=== PATIENT | female | born 1950 | race Caucasian/White ===

== ENCOUNTER → 2017-02-09 | Outpatient (CLI) | payer MEDICARE, OTHER | END | disposition home or self-care (01) | LOC: RADECHMAIN 13:29 | PROVIDERS: ATTEND Nurse Practitioner Adult Health | DX: Z53.9 Procedure and treatment not carried out, unspecified reason (principal) ==

== ENCOUNTER → 2017-08-13 | Outpatient (CLI) | payer MEDICARE, OTHER ==
--- NOTE | 2017-08-13 12:49 | CT ---
EXAMINATION TYPE: CT chest wo con DATE OF EXAM: 08/13/2017 COMPARISON: 02/09/2017 HISTORY: Solitary pulmonary nodule follow-up. CT DLP: 543 mGycm. Automated Exposure Control for Dose Reduction was Utilized. TECHNIQUE: CT scan of the thorax is performed without IV contrast. FINDINGS: LUNGS: Pleural thickening and subpleural nodularity appears stable. Area of consolidation within the anterior lingula is unchanged in appearance appears most likely inflammatory. Changes of COPD again noted. No consolidative pneumonia, pleural effusion, or pneumothorax. MEDIASTINUM: Lack of IV contrast is noted to limit evaluation for mediastinal and especially hilar ad enopathy. There are no definitive greater than 1 cm hilar or mediastinal lymph nodes. Trace amount pe ricardial fluid noted. OTHER: There is a 1 cm hyperdense lesion involving the upper pole the left kidney likely related to h emorrhagic cyst recommend ultrasound for confirmation. There is a 2 cm lesion involving the upper susie e the right kidney measuring 2 Hounsfield units compatible with a simple cyst. Small hiatal hernia no kelli. Hypertrophic and degenerative change of the spine noted. IMPRESSION: 1. Stable chronic nodularity recommend follow-up CT scan in 6 months to confirm stability. 2. Subsegmental consolidation lingular segment left upper lobe is stable likely postinflammatory. 3. Hyperdense lesion upper pole left kidney measuring approximate 1 cm most likely in the basis of he morrhagic cyst. Ultrasound recommended for confirmation. Area was not included on the previous CT sca n.
== END | disposition home or self-care (01) ==
LOC: RADCTMAIN 12:14
PROVIDERS: ATTEND Family Medicine
DX: R91.1 Solitary pulmonary nodule (principal); J98.4 Other disorders of lung
CPT/HCPCS: 71250

== ENCOUNTER → 2017-08-25 | Outpatient (CLI) | payer MEDICARE, OTHER ==
--- NOTE | 2017-08-25 20:18 | US ---
EXAMINATION TYPE: US kidneys/renal and bladder DATE OF EXAM: 08/25/2017 COMPARISON: CT Chest CLINICAL HISTORY: 67-year-old female N28.1 CYST OF KIDNEY. TECHNIQUE: Multiple sonographic images of the kidneys and bladder are obtained. FINDINGS: EXAM MEASUREMENTS: Right Kidney: 11.3 x 5.3 x 4.8 cm Left Kidney: 11.5 x 5.3 x 5.3 cm Right Kidney: There is an upper pole simple cyst measuring 1.8 cm. An exophytic hypoechoic lesion at the lower pole measures 1.4 cm and probably represents a cyst. Internal echoes could be artifactual o r could represent debris. There is a third cyst measuring 1 cm in the mid to lower pole. Left Kidney: Exophytic lower pole cyst measures 2.1 cm. There is also a tiny upper pole cortical cyst measuring 1 cm. This likely corresponds to the CT finding. No hydronephrosis on either side. Bladder: wnl Bilateral Jets seen: Yes IMPRESSION: 1. Multiple renal cysts measuring up to 1.8 cm on the right and 2.1 cm on the left. 2. One of the lesions in the mid to lower pole right kidney is indeterminate measuring 1.4 cm but mos t likely represents a cyst. Internal echoes could be artifactual or could represent debris. A six-mon th follow-up could be considered. 3. A 1 cm cyst in the upper pole left kidney likely corresponds to the question hemorrhagic cyst seen on CT. Again, this area can be reassessed in 6 months.
== END | disposition home or self-care (01) ==
LOC: RADUSWWP 15:56
PROVIDERS: ATTEND Family Medicine
DX: N28.1 Cyst of kidney, acquired (principal)
CPT/HCPCS: 76770

== ENCOUNTER → 2018-02-16 | Outpatient (CLI) | payer MEDICARE, OTHER ==
--- NOTE | 2018-02-16 12:47 | CT ---
EXAMINATION TYPE: CT chest wo con DATE OF EXAM: 02/16/2018 COMPARISON: CT chest August 13, 2017. Low dose lung screening CT February 09, 2017. HISTORY: Pulmonary nodule CT DLP: 295.2 mGycm. Automated Exposure Control for Dose Reduction was Utilized. TECHNIQUE: CT scan of the thorax is performed without IV contrast. FINDINGS: LUNGS: Linear scarring in the lingula is redemonstrated less nodular in appearance versus older studi es. Stable mild biapical pleural/parenchymal scarring is noted. Prominent left lower thin-walled cyst medially left lung base is redemonstrated axial image 44. Additional smaller blebs or thin-walled cy sts are noted bilaterally. No suspicious new nodule or mass. No pleural effusion or pneumothorax. MEDIASTINUM: Lack of IV contrast is noted to limit evaluation for mediastinal and especially hilar ad enopathy. There are no definitive greater than 1 cm hilar or mediastinal lymph nodes. No cardiomega ly or pericardial effusion is seen. OTHER: Demineralization is present. Mild multilevel anterior spurring in the spine is seen. Stable vogel bcentimeter hyperdense lesion posteriorly upper pole level left kidney is too small to further charac terize favor proteinaceous cyst axial image 58. IMPRESSION: Linear scarring in the lingula less nodular on current study. No new greater than 4 mm no dules are evident in either lung.
== END ==
LOC: RADCTMAIN 11:37
PROVIDERS: ATTEND Family Medicine
DX: J98.4 Other disorders of lung (principal); R91.8 Other nonspecific abnormal finding of lung field
CPT/HCPCS: 71250

== ENCOUNTER → 2018-02-16 | Outpatient (CLI) | payer MEDICARE, OTHER ==
--- NOTE | 2018-02-16 16:03 | US ---
EXAMINATION TYPE: US kidneys/renal and bladder DATE OF EXAM: 02/16/2018 COMPARISON: CLINICAL HISTORY: N28.1 CYST ON KIDNEY. Hx of renal cysts, no surgeries EXAM MEASUREMENTS: Right Kidney: 10.3 x 4.2 x 4.6 cm Left Kidney: 10.2 x 4.2 x 4.7 cm Right Kidney: Multiple cystic appearing lesions seen, largest measured. 1- upper = 1.9 x 1.7 x 1.5 cm . 2- lower pole pedunculated = 1.5 x 1.1 x1.4 cm Left Kidney: Multiple cystic appearing lesions seen. 1- lower= 2.0 x 1.8 x 1.9 cm. 2- upper = 1.0 x 0.9 x 1.0 cm Bladder: distended, wnl as visualized Bilateral Jets seen IMPRESSION: 1. Bilateral renal cysts. These are somewhat limited due to patient body habitus and cannot be classi fied as simple cyst. Monitoring with ultrasound is recommended.
== END | disposition home or self-care (01) ==
LOC: RADUSWWP 11:03
PROVIDERS: ATTEND Urology
DX: N28.1 Cyst of kidney, acquired (principal)
CPT/HCPCS: 76770

== ENCOUNTER → 2019-03-09 | Outpatient (CLI) | payer MEDICARE, OTHER ==
--- NOTE | 2019-03-09 13:29 | US ---
EXAMINATION TYPE: US kidneys/renal and bladder DATE OF EXAM: 03/09/2019 COMPARISON: US 2018 CLINICAL HISTORY: N28.1 Multiple Renal [id number] Pulmonary nodule. Multiple renal cysts EXAM MEASUREMENTS: Right Kidney: 10.4 x 4.7 x 4.2 cm Left Kidney: 10.4 x 4.8 x 4.7 cm Right Kidney: 1.6 x 1.5 x 1.5cm exophytic cystic area inferior pole, 0.3cm echogenic focus inferior p ole Left Kidney: 2.3 x 2.0 x 2.0cm exophytic cystic area inferior pole, 1.6 x 1.6cm cystic area medial mi d pole Bladder: wnl Bilateral Jets seen: yes There is no evidence for hydronephrosis at this point in time bilaterally. Possible nonobstructing ti ny 3 mm calculus lower pole right kidney. Bilateral renal lesions as noted above not completely anech oic on images saved but not changed in size suggesting benign etiology. The urinary bladder is anech oic. Bilateral ureteral jets are seen. IMPRESSION: Overall stable findings. No new or enlarging concerning lesions or hydronephrosis seen bi laterally.
--- NOTE | 2019-03-09 14:13 | CT ---
EXAMINATION TYPE: CT chest wo con DATE OF EXAM: 03/09/2019 COMPARISON: 02/16/2018 HISTORY: Pulmonary nodule CT DLP: 500 mGycm, Automated exposure control for dose reduction was used. CONTRAST: Performed injected with 0 mL of Isovue 300. TECHNIQUE: Axial images were obtained at 5 mm thick sections. Reconstructed images are reviewed on [employer] computer in the coronal plane. FINDINGS: There is a 0.7 cm hypodensity within the mid left lobe thyroid. Thyroid is otherwise unrema rkable. No suspicious lung nodules or focal infiltrates are present. There is a stable appearance of some inf iltrate or scarring within the anterior lingula. Bulla within the inferior medial left lung base is s maller than comparison. No enlarged mediastinal or hilar adenopathy is evident. The ascending aorta diameter at the level o f the main pulmonary artery is 2.9 cm. The main pulmonary artery diameter at the bifurcation is 1.[address] sections are obtained through the upper abdomen. Abdomen is essentially unremarkable. IMPRESSIONS: 1. Unremarkable CT chest. 2. Stable infiltrate or scarring at the lingula.
== END | disposition home or self-care (01) ==
LOC: RADUSWWP 12:12
PROVIDERS: ATTEND Family Medicine
DX: N28.1 Cyst of kidney, acquired (principal); R91.1 Solitary pulmonary nodule
CPT/HCPCS: 71250; 76770

== ENCOUNTER → 2019-04-11 | Outpatient (CLI) | payer MEDICARE, OTHER ==
--- NOTE | 2019-04-14 10:42 | MM ---
Reason for exam: screening (asymptomatic). Last mammogram was performed 2 years and 2 months ago. History: Patient is postmenopausal. Physical Findings: A clinical breast exam by your physician is recommended on an annual basis and results should be correlated with mammographic findings. MG 3D Screening Mammo W/Cad Bilateral CC and MLO view(s) were taken. Prior study comparison: February 09, 2017, bilateral MG 3d screening mammo w/cad. The breast tissue is heterogeneously dense. This may lower the sensitivity of mammography. There are benign appearing round calcifications in the left breast. There is no discrete abnormality. ASSESSMENT: Benign, BI-RAD 2 RECOMMENDATION: Routine screening mammogram of both breasts in 1 year.
== END | disposition home or self-care (01) ==
LOC: RADMAMWWP 14:20
PROVIDERS: ATTEND Family Medicine
DX: Z12.31 Encounter for screening mammogram for malignant neoplasm of breast (principal)
CPT/HCPCS: 77063; 77067

== ENCOUNTER → 2020-03-07 | Outpatient (CLI) | payer MEDICARE, OTHER ==
--- NOTE | 2020-03-07 15:01 | US ---
EXAMINATION TYPE: US kidneys/renal and bladder DATE OF EXAM: 03/07/2020 COMPARISON: NONE CLINICAL HISTORY: R91.1 solitary lung nodule, N28.1 renal cysts. EXAM MEASUREMENTS: Right Kidney: 10.8 x 3.7 x 4.4 cm Left Kidney: 9.1 x 4.3 x 3.8 cm Right Kidney: Hypoechoic area lower pole 1.8 cm cystic area upper pole 1.3 cm. Left Kidney: Cystic area lower pole 2.1 x 2.2 x 2.3 cm Bladder: wnl Bilateral Jets seen: Yes There is no evidence for hydronephrosis at this point in time. No nephrolithiasis is seen. No patricia s are identified. The urinary bladder is anechoic. IMPRESSION: Renal cystic changes noted.
--- NOTE | 2020-03-07 15:10 | CT ---
EXAMINATION TYPE: CT chest wo con DATE OF EXAM: 03/07/2020 COMPARISON: Chest CT March 09, 2019 and older studies . HISTORY: Follow up for solitary lung nodule. CT DLP: 335.3 mGycm. Automated Exposure Control for Dose Reduction was Utilized. TECHNIQUE: CT scan of the thorax is performed without IV contrast. FINDINGS: LUNGS: Occasional scattered tiny blebs in the lower lungs. No suspicious new or enlarging greater th an 4 mm nodules or masses. No pleural effusion or pneumothorax. Mild to moderate left basilar linear scarring and/or atelectasis redemonstrated. MEDIASTINUM: Lack of IV contrast is noted to limit evaluation for mediastinal and especially hilar ad enopathy. There are no definitive new greater than 1 cm hilar or mediastinal lymph nodes. No cardio megaly or pericardial effusion is seen. OTHER: Mild to moderate multilevel spurring in the spine. IMPRESSION: Chronic changes without acute pulmonary process. No new or enlarging greater than 4 rocky meter pulmonary nodules.
== END | disposition home or self-care (01) ==
LOC: RADUSWWP 14:20
PROVIDERS: ATTEND Family Medicine
DX: N28.1 Cyst of kidney, acquired (principal); R91.1 Solitary pulmonary nodule
CPT/HCPCS: 71250; 76770

== ENCOUNTER 2020-11-26 16:29 | Emergency (ER) | payer MEDICARE, OTHER ==
[2020-11-26 16:38] VITALS: TEMP 98.2
--- NOTE | 2020-11-26 16:51 | ED ---
Chest Pain HPI - General Chief Complaint: Chest Pain Stated Complaint: Chest Pressure Time Seen by Provider: 11/26/20 16:47 Source: patient Mode of arrival: ambulatory Limitations: no limitations - History of Present Illness Initial Comments: Racheal is a 70-year-old female who presents to the emergency department today for evaluation of chest pressure. Patient reports she began experiencing pressure in her chest last month, she states that the first time she experienced it was during a doctor's appointment. She states that it has occurred intermitt ently since that time. Does not seem to be exacerbated by activity or relieved by rest. She cannot identify any exacerbating or relieving factors. She describes it as a pressure in her chest. Usually happens intermittently but has been relatively persistent for the past 3 days. No associated shortness of breath diaphoresis or lightheadedness. She does state that she hasn't been sleeping well this week. She states that her son is doing on Thursday across the states that she came to the ER today to make sure she is healthy enough to travel. Patient has no history of hypertension, she was once diagnosed with hyperlipidemia and was on statins for a short period of time but states that her repeat blood work was good and her prescription for statin was not renewed. She is currently on no medications. She is a smoker. She has no family history of heart disease. - Related Data Home Medications Medication Instructions Recorded Confirmed [place]-3 Fatty Acids/Fish Oil [Fish 2,000 mg PO DAILY 09/15/14 09/15/14 Oil 1,000 mg Softgel] Allergies Allergy/AdvReac Type Severity Reaction Status Date / Time Sulfa (Sulfonamide AdvReac RINGING IN Verified 11/26/20 16:38 Antibiotics) YOUR EARS Review of Systems ROS Statement: Those systems with pertinent positive or pertinent negative responses have been documented in the HPI. ROS Other: All systems not noted in ROS Statement are negative. EKG Findings - EKG Comments: EKG Findings:: EKG was obtained due to complaint of chest pain, EKG was obtained at 1645 rate is 77 rhythm is sinus there is a normal axis, there are normal intervals, LA 132, QRS 34, QTC is 436. There are no acute ST elevations, there are lateral depressions no evidence of acute ischemia or infarction. Past Medical History Past Medical History: No Reported History History of Any Multi-Drug Resistant Organisms: None Reported Past Surgical History: Appendectomy Additional Past Surgical History / Comment(s): ECTOPIC Past Anesthesia/Blood Transfusion Reactions: Motion Sickness Past Alcohol Use History: Occasional Past Drug Use History: None Reported General Exam - General Exam Comments Initial Comments: Physical Exam GENERAL: Patient is well-developed and well-nourished. Patient is nontoxic and well- hydrated and is in no distress. HENT: Normocephalic, Atraumatic. EYES: PERRL, EOMI PULMONARY: Unlabored respirations. No audible rales rhonchi or wheezing was noted. CARDIOVASCULAR: There is a regular rate and rhythm without any murmurs gallops or rubs. ABDOMEN: Soft and nontender with normal bowel sounds. SKIN: Skin is clear with no lesions or rashes and otherwise unremarkable. : Deferred NEUROLOGIC: Patient is alert and oriented x3. Moving all extremities spontaneously MUSCULOSKELETAL: Normal extremities with adequate strength and full range of motion. No lower extremity swelling or edema. No calf tenderness. PSYCHIATRIC: Normal psychiatric evaluation. Limitations: no limitations Course Vital Signs 11/26/20 11/26/20 16:36 16:51 Temperature 98.2 F Pulse Rate 86 Pulse Rate [ 78 Scientific Diver ] Respiratory 18 Rate Blood Pressure 156/79 O2 Sat by Pulse 98 Oximetry Disposition Clinical Impression: Atypical chest pain Disposition: HOME SELF-CARE Condition: Stable Instructions (If sedation given, give patient instructions): Chest Pain (ED) Is patient prescribed a controlled substance at d/c from ED?: No Referrals: Georges Bueno MD [Primary Care Provider] - 1-2 days
[2020-11-26 17:12] LABS: Basophils % (A) 0 %; Eosinophils # (A) 0.1 k/uL (0-0.7); Eosinophils % (A) 1 %; HCT 49.6 % (34.0-46.0); HGB 16.8 gm/dL (11.4-16.0); Lymphocytes # (A) 1.8 k/uL (1.0-4.8); Lymphocytes % (A) 20 %; MCH 33.8 pg (25.0-35.0); MCHC 33.9 g/dL (31.0-37.0); MCV 99.6 fL (80.0-100.0); Mean Platelet Volume 8.7; Monocytes # (A) 0.4 k/uL (0-1.0); Monocytes % (A) 5 %; Neutrophils # (A) 6.4 k/uL (1.3-7.7); Neutrophils % (A) 72 %; Platelet Count 235 k/uL (150-450); RBC 4.97 m/uL (3.80-5.40); RDW 13.4 % (11.5-15.5); WBC 8.9 k/uL (3.8-10.6)
[2020-11-26 17:27] LABS: INR 0.9 (<1.2); Partial Thromboplastin Time 23.1 sec (22.0-30.0); Prothrombin Time 10.1 sec (9.0-12.0)
[2020-11-26 17:35] LABS: Potassium 4.1 mmol/L (3.5-5.1)
[2020-11-26 17:36] LABS: ALT 15 U/L (4-34); AST 23 U/L (14-36); African American GFR (CKD) >90 (>60 ml/min/1.73 sqM); Albumin 4.2 g/dL (3.5-5.0); Alkaline Phosphatase 124 U/L (38-126); Anion Gap 7 mmol/L; Blood Urea Nitrogen 9 mg/dL (7-17); Carbon Dioxide 21 mmol/L (22-30); Chloride 109 mmol/L (98-107); Glucose 117 mg/dL (74-99); Lipase 165 U/L (23-300); Magnesium 2.1 mg/dL (1.6-2.3); Non-African American GFR(CKD) >90 (>60 ml/min/1.73 sqM); Sodium 137 mmol/L (137-145); Total Bilirubin 0.7 mg/dL (0.2-1.3); Total Protein 6.9 g/dL (6.3-8.2)
--- NOTE | 2020-11-26 18:55 | XR ---
EXAM: XR Chest, 2 Views CLINICAL HISTORY: ITS.REASON XR Reason: Chest Pain TECHNIQUE: Frontal and lateral views of the chest. COMPARISON: None FINDINGS: Hardware: None. Lungs/pleura: Mild bibasilar atelectasis. No focal consolidation. No pleural effusion or pneumothorax. Heart/mediastinum: Normal. No cardiomegaly. Soft tissues: Unremarkable. Bones: No acute fracture. Upper abdomen: Normal. IMPRESSION: Mild bibasilar atelectasis. No acute disease identified.
[2020-11-26 19:32] VITALS: BP 153/65; PULSE 64; RESP 16
== END 2020-11-26 19:32 | disposition home or self-care (01) ==
LOC: EC 16:29
DX: R07.89 Other chest pain (principal)
CPT/HCPCS: 36415; 71046; 80053; 83690; 83735; 83880; 84484; 85025; 85379; 85610; 85730; 93005; 99285

== ENCOUNTER 2021-07-06 10:05 | Emergency (ER) | payer MEDICARE, OTHER ==
[2021-07-06 10:15] VITALS: RESP 18; TEMP 98.1
[2021-07-06] MEDS ORDERED: SODIUM CHLORIDE 0.9% 500 ML 500 ML IV STA (10:50)
[2021-07-06] MEDS ORDERED: ONDANSETRON 4 MG/2 ML VIAL IVP STA (10:51)
[2021-07-06] MEDS ORDERED: KETOROLAC 15 MG/ML 1 ML VIAL IVP STA (10:52)
--- NOTE | 2021-07-06 10:57 | ED ---
General Adult HPI - General Source: patient, family, RN notes reviewed, old records reviewed Mode of arrival: ambulatory Limitations: no limitations - History of Present Illness -: week(s) (2) Location: face (frontal sinus) Severity scale (1-10): 7 Quality: aching, dull, constant Consistency: constant Associated Symptoms: malaise, nausea/vomiting Treatments Prior to Arrival: other (augmentin) <Kishor Armando - Last Filed: 07/06/21 17:00> <Suzanne Owusu - Last Filed: 07/07/21 09:43> - General Chief complaint: Weakness Stated complaint: NVD Time Seen by Provider: 07/06/21 10:47 - History of Present Illness Initial comments: 71-year-old female presents to the emergency room with frontal sinus pain, malaise, nausea and vomiting. Patient was treated for urinary tract infection 2 weeks ago. States at that time she did not have any urinary tract symptoms. States she developed headache and sinus congestion/pressure a week ago and called her primary care doctor who prescribed her Augmentin on Thursday. Patient complains of nausea and decreased appetite and generalized malaise worsening with Augmentin. She denies any fevers. She states that decreased appetite and intermittent abdominal pain has been present for over a year and has seen Dr. Ayala in the past. She has been taking probiotics as recommended. She states she had a colonoscopy in April and was told she had a hiatal hernia at that time. She denies any chest pain or shortness of breath. (Kishor Armando) - Related Data Home Medications Medication Instructions Recorded Confirmed Omeprazole [PriLOSEC] 40 mg PO DAILY 05/03/21 05/08/21 Prolia(Dose Unknown) 1 injection IJ DIRECTED 05/03/21 05/08/21 Allergies Allergy/AdvReac Type Severity Reaction Status Date / Time Sulfa (Sulfonamide AdvReac RINGING IN Verified 07/06/21 10:15 Antibiotics) YOUR EARS Review of Systems ROS Other: All systems not noted in ROS Statement are negative. <Kishor Armando - Last Filed: 07/06/21 17:00> ROS Other: All systems not noted in ROS Statement are negative. <Suzanne Owusu - Last Filed: 07/07/21 09:43> ROS Statement: Those systems with pertinent positive or pertinent negative responses have been documented in the HPI. Past Medical History Past Medical History: No Reported History History of Any Multi-Drug Resistant Organisms: None Reported Past Surgical History: Appendectomy Additional Past Surgical History / Comment(s): ECTOPIC Past Anesthesia/Blood Transfusion Reactions: Motion Sickness Smoking Status: Current every day smoker Past Alcohol Use History: Occasional Past Drug Use History: None Reported <Kishor Armando - Last Filed: 07/06/21 17:00> General Exam Limitations: no limitations General appearance: alert, in no apparent distress Head exam: Present: atraumatic, normocephalic, normal inspection, other (Pain with palpation of frontal sinus) Eye exam: Present: normal appearance. Absent: scleral icterus, conjunctival injection, periorbital swelling, periorbital tenderness ENT exam: Present: normal exam, normal oropharynx, mucous membranes moist Neck exam: Present: normal inspection, full ROM. Absent: tenderness, meningismus, lymphadenopathy, thyromegaly Respiratory exam: Present: normal lung sounds bilaterally. Absent: respiratory distress, wheezes, rales, rhonchi, stridor, chest wall tenderness, accessory muscle use, decreased breath sounds Cardiovascular Exam: Present: tachycardia, normal heart sounds. Absent: JVD GI/Abdominal exam: Present: soft. Absent: distended, tenderness, guarding Extremities exam: Present: normal capillary refill. Absent: tenderness, pedal edema Back exam: Absent: tenderness, CVA tenderness (R), CVA tenderness (L) Neurological exam: Present: alert, oriented X3, normal gait Psychiatric exam: Present: normal affect, normal mood Skin exam: Present: warm, dry, normal color. Absent: rash, cyanosis, diaphoretic <Kishor Armando - Last Filed: 07/06/21 17:00> Course Vital Signs 07/06/21 07/06/21 10:10 13:38 Temperature 98.1 F Pulse Rate 106 H 84 Respiratory 18 18 Rate Blood Pressure 144/83 117/70 O2 Sat by Pulse 94 L 99 Oximetry EKG Findings - EKG Results: EKG: sinus rhythm (Ventricular rate of 95, UT of 0.135, QRS 0.78, QTC 0.384) <Kishor Armando - Last Filed: 07/06/21 17:00> Medical Decision Making - Lab Data Result diagrams: 07/06/21 11:00 07/06/21 11:00 <Kishor Armando - Last Filed: 07/06/21 17:00> - Lab Data Result diagrams: 07/06/21 11:00 07/06/21 11:00 <Suzanne Owusu - Last Filed: 07/07/21 09:43> - Medical Decision Making 71-year-old female presents with headache, frontal sinus pain, malaise, nausea and vomiting since taking Augmentin for sinusitis. She finished a course of antibiotics for urinary tract infection 2 weeks ago. She denies any fevers, no cough, shortness of breath or chest pain. Patient does have a white blood cell count 18.6. Urinalysis shows no nitrates or bacteria. Influenza, RSV and Covid swabs are negative. CT brain shows no acute intracranial process. Mild scattered paranasal sinus disease with no abnormal fluid collections. No midline shift. Abdomen is soft and nontender. Lungs are clear to auscultation. Vital signs are stable oxygen saturation 99% on room air. She is afebrile. Patient was directed to continue her Augmentin for sinusitis and follow up with her primary care doctor on Thursday for reevaluation of her white blood cell count. Return to the emergency room with any new or concerning symptoms including difficulty breathing, cough, abdominal pain, fevers, or persistent nausea and vomiting. Case discussed with Dr. Owusu (Kishor Armando) I was available for consultation in the emergency department. The history and physical exam were done by the midlevel provider. I was consulted for this patients care. I reviewed the case with the midlevel provider and based on their presentation of the patient, I agree with the assessment, medical decision making and plan of care as documented. Chart was dictated using [employer] dictation software. Attempts were made to correct any dictation errors however some typographical errors may persist. Patient was seen during a national state of emergency due to the Covid-19 pandemic. (Suzanne Owusu) - Lab Data Lab Results 07/06/21 07/06/21 07/06/21 Range/Units 11:00 11:00 11:00 WBC 18.6 H (3.8-10.6) k/uL RBC 4.82 (3.80-5.40) m/uL Hgb 15.6 (11.4-16.0) gm/dL Hct 47.3 H (34.0-46.0) % MCV 98.2 (80.0-100.0) fL MCH 32.4 (25.0-35.0) pg MCHC 33.0 (31.0-37.0) g/dL RDW 14.0 (11.5-15.5) % Plt Count 310 (150-450) k/uL MPV 9.0 Neutrophils % 89 % Lymphocytes % 4 % Monocytes % 6 % Eosinophils % 0 % Basophils % 0 % Neutrophils # 16.5 H (1.3-7.7) k/uL Lymphocytes # 0.8 L (1.0-4.8) k/uL Monocytes # 1.2 H (0-1.0) k/uL Eosinophils # 0.0 (0-0.7) k/uL Basophils # 0.0 (0-0.2) k/uL PT 10.8 (9.0-12.0) sec INR 1.0 (<1.2) APTT 23.0 (22.0-30.0) sec Sodium (137-145) mmol/L Potassium (3.5-5.1) mmol/L Chloride (98-107) mmol/L Carbon Dioxide (22-30) mmol/L Anion Gap mmol/L BUN (7-17) mg/dL Creatinine (0.52-1.04) mg/dL Est GFR (CKD-EPI)AfAm (>60 ml/min/1.73 sqM) Est GFR (CKD-EPI)NonAf (>60 ml/min/1.73 sqM) Glucose (74-99) mg/dL Plasma Lactic Acid Randy (0.7-2.0) mmol/L Calcium (8.4-10.2) mg/dL Magnesium (1.6-2.3) mg/dL Total Bilirubin (0.2-1.3) mg/dL AST (14-36) U/L ALT (4-34) U/L Alkaline Phosphatase (38-126) U/L Troponin I (0.000-0.034) ng/mL Total Protein (6.3-8.2) g/dL Albumin (3.5-5.0) g/dL Urine Color Yellow Urine Appearance Cloudy H (Clear) Urine pH 6.0 (5.0-8.0) Ur Specific [place] 1.025 (1.001-1.035) Urine Protein 1+ H (Negative) Urine Glucose (UA) Trace H (Negative) Urine Ketones 2+ H (Negative) Urine Blood Small H (Negative) Urine Nitrite Negative (Negative) Urine Bilirubin Negative (Negative) Urine Urobilinogen 2.0 (<2.0) mg/dL Ur Leukocyte Esterase Small H (Negative) Urine RBC 13 H (0-5) /hpf Urine WBC 3 (0-5) /hpf Ur Squamous Epith Cells 7 H (0-4) /hpf Urine Mucus Many H (None) /hpf Influenza Type A (PCR) (Not Detectd) Influenza Type B (PCR) (Not Detectd) RSV (PCR) (Not Detectd) SARS-CoV-2 (PCR) (Not Detectd) 07/06/21 07/06/21 07/06/21 Range/Units 11:00 11:00 11:00 WBC (3.8-10.6) k/uL RBC (3.80-5.40) m/uL Hgb (11.4-16.0) gm/dL Hct (34.0-46.0) % MCV (80.0-100.0) fL MCH (25.0-35.0) pg MCHC (31.0-37.0) g/dL RDW (11.5-15.5) % Plt Count (150-450) k/uL MPV Neutrophils % % Lymphocytes % % Monocytes % % Eosinophils % % Basophils % % Neutrophils # (1.3-7.7) k/uL Lymphocytes # (1.0-4.8) k/uL Monocytes # (0-1.0) k/uL Eosinophils # (0-0.7) k/uL Basophils # (0-0.2) k/uL PT (9.0-12.0) sec INR (<1.2) APTT (22.0-30.0) sec Sodium 135 L (137-145) mmol/L Potassium 3.2 L (3.5-5.1) mmol/L Chloride 104 (98-107) mmol/L Carbon Dioxide 19 L (22-30) mmol/L Anion Gap 12 mmol/L BUN 13 (7-17) mg/dL Creatinine 0.67 (0.52-1.04) mg/dL Est GFR (CKD-EPI)AfAm >90 (>60 ml/min/1.73 sqM) Est GFR (CKD-EPI)NonAf 89 (>60 ml/min/1.73 sqM) Glucose 161 H (74-99) mg/dL Plasma Lactic Acid Randy 1.5 (0.7-2.0) mmol/L Calcium 8.4 (8.4-10.2) mg/dL Magnesium 1.8 (1.6-2.3) mg/dL Total Bilirubin 1.1 (0.2-1.3) mg/dL AST 17 (14-36) U/L ALT 10 (4-34) U/L Alkaline Phosphatase 105 (38-126) U/L Troponin I <0.012 (0.000-0.034) ng/mL Total Protein 6.6 (6.3-8.2) g/dL Albumin 3.6 (3.5-5.0) g/dL Urine Color Urine Appearance (Clear) Urine pH (5.0-8.0) Ur Specific [place] (1.001-1.035) Urine Protein (Negative) Urine Glucose (UA) (Negative) Urine Ketones (Negative) Urine Blood (Negative) Urine Nitrite (Negative) Urine Bilirubin (Negative) Urine Urobilinogen (<2.0) mg/dL Ur Leukocyte Esterase (Negative) Urine RBC (0-5) /hpf Urine WBC (0-5) /hpf Ur Squamous Epith Cells (0-4) /hpf Urine Mucus (None) /hpf Influenza Type A (PCR) (Not Detectd) Influenza Type B (PCR) (Not Detectd) RSV (PCR) (Not Detectd) SARS-CoV-2 (PCR) (Not Detectd) 07/06/21 Range/Units 11:09 WBC (3.8-10.6) k/uL RBC (3.80-5.40) m/uL Hgb (11.4-16.0) gm/dL Hct (34.0-46.0) % MCV (80.0-100.0) fL MCH (25.0-35.0) pg MCHC (31.0-37.0) g/dL RDW (11.5-15.5) % Plt Count (150-450) k/uL MPV Neutrophils % % Lymphocytes % % Monocytes % % Eosinophils % % Basophils % % Neutrophils # (1.3-7.7) k/uL Lymphocytes # (1.0-4.8) k/uL Monocytes # (0-1.0) k/uL Eosinophils # (0-0.7) k/uL Basophils # (0-0.2) k/uL PT (9.0-12.0) sec INR (<1.2) APTT (22.0-30.0) sec Sodium (137-145) mmol/L Potassium (3.5-5.1) mmol/L Chloride (98-107) mmol/L Carbon Dioxide (22-30) mmol/L Anion Gap mmol/L BUN (7-17) mg/dL Creatinine (0.52-1.04) mg/dL Est GFR (CKD-EPI)AfAm (>60 ml/min/1.73 sqM) Est GFR (CKD-EPI)NonAf (>60 ml/min/1.73 sqM) Glucose (74-99) mg/dL Plasma Lactic Acid Randy (0.7-2.0) mmol/L Calcium (8.4-10.2) mg/dL Magnesium (1.6-2.3) mg/dL Total Bilirubin (0.2-1.3) mg/dL AST (14-36) U/L ALT (4-34) U/L Alkaline Phosphatase (38-126) U/L Troponin I (0.000-0.034) ng/mL Total Protein (6.3-8.2) g/dL Albumin (3.5-5.0) g/dL Urine Color Urine Appearance (Clear) Urine pH (5.0-8.0) Ur Specific [place] (1.001-1.035) Urine Protein (Negative) Urine Glucose (UA) (Negative) Urine Ketones (Negative) Urine Blood (Negative) Urine Nitrite (Negative) Urine Bilirubin (Negative) Urine Urobilinogen (<2.0) mg/dL Ur Leukocyte Esterase (Negative) Urine RBC (0-5) /hpf Urine WBC (0-5) /hpf Ur Squamous Epith Cells (0-4) /hpf Urine Mucus (None) /hpf Influenza Type A (PCR) Not Detected (Not Detectd) Influenza Type B (PCR) Not Detected (Not Detectd) RSV (PCR) Not Detected (Not Detectd) SARS-CoV-2 (PCR) Not Detected (Not Detectd) Disposition Is patient prescribed a controlled substance at d/c from ED?: No Time of Disposition: 14:04 <Kishor Armando - Last Filed: 07/06/21 17:00> <JoséstephanySuzanne Dorian - Last Filed: 07/07/21 09:43> Clinical Impression: Headache, Sinusitis Disposition: HOME SELF-CARE Condition: Good Instructions (If sedation given, give patient instructions): Sinusitis (ED), Acute Headache (ED) Additional Instructions: Continue the antibiotics as prescribed by your primary care doctor on Thursday. Follow-up with your primary care doctor on Thursday for reevaluation of your blood work. Increase your fluid intake. Return to the emergency room with any new or concerning symptoms including increased pain, fevers, abdominal pain or persistent nausea/vomiting. Referrals: Georges Bueno MD [Primary Care Provider] - 1-2 days
[2021-07-06 11:31] LABS: ALT 10 U/L (4-34); AST 17 U/L (14-36); African American GFR (CKD) >90 (>60 ml/min/1.73 sqM); Albumin 3.6 g/dL (3.5-5.0); Alkaline Phosphatase 105 U/L (38-126); Anion Gap 12 mmol/L; Blood Urea Nitrogen 13 mg/dL (7-17); Calcium 8.4 mg/dL (8.4-10.2); Carbon Dioxide 19 mmol/L (22-30); Chloride 104 mmol/L (98-107); Glucose 161 mg/dL (74-99); Magnesium 1.8 mg/dL (1.6-2.3); Non-African American GFR(CKD) 89 (>60 ml/min/1.73 sqM); Potassium 3.2 mmol/L (3.5-5.1); Sodium 135 mmol/L (137-145); Total Bilirubin 1.1 mg/dL (0.2-1.3); Total Protein 6.6 g/dL (6.3-8.2)
[2021-07-06 11:32] LABS: Appearance,Urine Cloudy (Clear); Bilirubin,Urine Negative (Negative); Blood,Urine Small (Negative); Color,Urine Yellow; Glucose,Urine (UA) Trace (Negative); Ketones,Urine 2+ (Negative); Leukocyte Esterase,Urine Small (Negative); Mucus,Urine Many /hpf; Nitrite,Urine Negative (Negative); Protein,Urine 1+ (Negative); RBC,Urine 13 /hpf (0-5); Specific Gravity,Urine 1.025 (1.001-1.035); Squamous Epithelial Cell,Urine 7 /hpf (0-4); WBC,Urine 3 /hpf (0-5)
[2021-07-06 11:36] LABS: Prothrombin Time 10.8 sec (9.0-12.0)
[2021-07-06 11:54] LABS: Influenza A Not Detected (Not Detectd); Influenza B Not Detected (Not Detectd)
[2021-07-06 12:19] LABS: Basophils % (A) 0 %; Eosinophils % (A) 0 %; HCT 47.3 % (34.0-46.0); HGB 15.6 gm/dL (11.4-16.0); Lymphocytes # (A) 0.8 k/uL (1.0-4.8); Lymphocytes % (A) 4 %; MCH 32.4 pg (25.0-35.0); MCV 98.2 fL (80.0-100.0); Monocytes # (A) 1.2 k/uL (0-1.0); Monocytes % (A) 6 %; Neutrophils # (A) 16.5 k/uL (1.3-7.7); Neutrophils % (A) 89 %; Platelet Count 310 k/uL (150-450); RBC 4.82 m/uL (3.80-5.40); WBC 18.6 k/uL (3.8-10.6)
[2021-07-06 13:39] VITALS: BP 117/70; PULSE 84
--- NOTE | 2021-07-06 13:41 | CT ---
EXAMINATION TYPE: CT brain wo con CT DLP: 1062.4 mGycm, Automated exposure control for dose reduction was used. DATE OF EXAM: 07/06/2021 1:31 PM COMPARISON: None. CLINICAL INDICATION:Female, 71 years old with history of headache , Nausea, vomiting, diarrhea, heada narayan TECHNIQUE: Brain: Multiple axial CT images of the brain were obtained without IV contrast. FINDINGS: Brain: Extra-axial spaces: No abnormal extra-axial fluid collections. Ventricular system: Within normal limits Cerebral parenchyma: No acute intraparenchymal hemorrhage or mass effect. The abraham-white junction is well differentiated. Cerebellum: Unremarkable. Mass effect: No evidence of midline shift. Intracranial vasculature: Atherosclerotic calcifications of the intracranial vessels. Soft tissues: Normal. Calvarium/osseous structures: No depressed skull fracture. Paranasal sinuses and mastoid air cells: Mild scattered paranasal sinus disease. Visualized orbits: Orbital contents are intact. IMPRESSION: No acute intracranial process.
[2021-07-06] MEDS ORDERED: ONDANSETRON 4 MG ODT STARTER PACK 2 TAB BTL PO STA (14:11)
== END 2021-07-06 14:15 | disposition home or self-care (01) ==
LOC: EC 10:05
DX: R51.9 Headache, unspecified (principal); J01.10 Acute frontal sinusitis, unspecified; F17.200 Nicotine dependence, unspecified, uncomplicated; Z88.2 Allergy status to sulfonamides; Z90.49 Acquired absence of other specified parts of digestive tract; Z20.822 Contact with and (suspected) exposure to COVID-19
CPT/HCPCS: 99284; 96374; 96375; 96361 ×2; 36415; 93005; 80053; 83605; 83735; 84484; 85025; 85610; 85730; 81001; 87636; 70450; J2405; J1885; S0119

== ENCOUNTER → 2021-07-10 | Outpatient (CLI) | payer MEDICARE, OTHER ==
[2021-07-10 13:41] LABS: African American GFR (CKD) >90 (>60 ml/min/1.73 sqM); Blood Urea Nitrogen 11 mg/dL (7-17); Non-African American GFR(CKD) >90 (>60 ml/min/1.73 sqM)
--- NOTE | 2021-07-10 14:43 | CT ---
EXAMINATION TYPE: CT abdomen pelvis w con DATE OF EXAM: 07/10/2021 COMPARISON: No previous CT scan is available for comparison HISTORY: LLQ pain CT DLP: 1295 mGycm Automated exposure control for dose reduction was used. TECHNIQUE: Helical acquisition of images was performed from the lung bases through the pelvis. CONTRAST: Performed without Oral Contrast and with IV Contrast, patient injected with 100 mL of Isovue 300. FINDINGS: LUNG BASES: Scattered bilateral small lung cysts. LIVER/GB: Tiny hyperenhancing foci are seen along the anterior aspect of the falciform ligament as we ll as in segment 6 laterally, measuring 6 mm and 9 mm respectively, possibly representing small heman giomas, further elective ultrasound confirmation. Unremarkable liver otherwise. Unremarkable gallblad jose rafael. PANCREAS: No significant abnormality is seen. SPLEEN: No significant abnormality is seen. ADRENALS: No significant abnormality is seen. KIDNEYS: 12 mm left upper pole slightly hyperdense renal cyst possibly representing a hemorrhagic cys t, for elective ultrasound confirmation. Other scattered bilateral renal hypodensities likely represe nting cysts without gross suspicious features. Unremarkable kidneys otherwise. FREE AIR: No free air is visualized. RETROPERITONEAL ADENOPATHY: Prominent subcentimeter retroperitoneal lymph nodes, nonspecific. REPRODUCTIVE ORGANS: No gross uterine or adnexal mass. URINARY BLADDER: No significant abnormality is seen. PELVIC ADENOPATHY: None visualized. OSSEOUS STRUCTURES: No significant abnormality is seen. BOWEL: Severe diffuse wall thickening and edema of the rectum and the entire colon suggestive of acu te colitis which could be inflammatory, infectious or pseudomembranous. Associated diverticulosis of the colon most evident involving the sigmoid colon. Unremarkable nondistended stomach and duodenum. N o evidence of bowel obstruction. Twisting of mesenteric vessels in the right side of the abdomen infe riorly which may suggest a form of uncomplicated internal hernia or abnormal bowel rotation. OTHER: Atherosclerotic calcifications. No sizable ascites. IMPRESSION: Findings are suggestive of severe diffuse acute colitis as described above which could be inflammator y, infectious or pseudomembranous. Recommend clinical correlation and further workup. Other incidenta l findings and recommendations as described above.
== END | disposition home or self-care (01) ==
LOC: RADCTMAIN 12:09
PROVIDERS: ATTEND Family Medicine
DX: R10.32 Left lower quadrant pain (principal)
CPT/HCPCS: 82565; 84520; 74177; 36415; Q9967

== ENCOUNTER → 2022-12-09 | Outpatient (CLI) | payer MEDICARE, OTHER ==
--- NOTE | 2022-12-09 14:48 | CT ---
EXAMINATION TYPE: CT chest wo con CT DLP: 395 mGycm, Automated exposure control for dose reduction was used. DATE OF EXAM: 12/09/2022 2:43 PM COMPARISON: 07/10/2021 CT. CLINICAL INDICATION:Female, 72 years old with history of R91.8 ABNORMAL FINDING OF LUNG FIELD; PHH, A BNORMAL FINDING OF LUNG FIELD TECHNIQUE: Multiple axial images were obtained through the chest. Sagittal and coronal reformats were created for review. Contrast used: mL of (None if empty) Oral contrast used: (None if empty) FINDINGS: LUNGS/ PLEURA: Scattered mild centrilobular emphysema changes. No new or enlarging pulmonary nodules visualized. No focal consolidation, pneumothorax or pleural effusion. Atelectasis/scarring in the kim gula. AIRWAY: Patent and unremarkable. HEART: Size within normal limits. MEDIASTINUM: No gross evidence of adenopathy. VASCULATURE: No aortic aneurysm. MUSCULOSKELETAL: Mild disc degeneration changes are present throughout the thoracolumbar spine. SOFT TISSUES/LYMPH NODES: Unremarkable. LOWER NECK: No significant findings. UPPER ABDOMEN: Right renal cortical cyst. Left hyperdense indeterminate renal cyst is stable from 202 0. IMPRESSION: 1. No evidence for new or enlarging pulmonary nodule. 2. Mild emphysema changes. 3. Stable left hyperdense renal cyst dating back to at least 03/07/2020 likely representing proteina ceous/hemorrhagic cyst.
== END | disposition home or self-care (01) ==
LOC: RADCTMAIN 14:19
PROVIDERS: ATTEND Family Medicine
DX: J43.2 Centrilobular emphysema (principal); R91.8 Other nonspecific abnormal finding of lung field; N28.1 Cyst of kidney, acquired
CPT/HCPCS: 71250

== ENCOUNTER → 2023-03-31 | Outpatient (CLI) | payer MEDICARE, OTHER ==
--- NOTE | 2023-04-02 22:26 | MM ---
Reason for Exam: Screening (asymptomatic). Last mammogram was performed 4 year(s) and 0 month(s) ago. Patient History: Menarche at age 10. First Full-Term at age 29. Postmenopausal. Risk Values: Marilu 5 year model risk: 2.1%. NCI Lifetime model risk: 5.6%. Prior Study Comparison: 02/09/2017 Bilateral Screening Mammogram, [facility]. 04/11/2019 Bilateral Screening Mammogram, [facility]. Tissue Density: The breast tissue is heterogeneously dense. This may lower the sensitivity of mammography. Findings: Analyzed By CAD. There is chronic nodularity central posterior right MLO view. There is no suspicious group of microcalcifications or new suspicious mass in either breast. Overall Assessment: Benign, BI-RAD 2 Management: Screening Mammogram of both breasts in 1 year. . Patient should continue monthly self-breast exams. A clinical breast exam by your physician is recommended on an annual basis. This exam should not preclude additional follow-up of suspicious palpable abnormalities. Note on Marilu scores and lifetime risk: 1. A Marilu score greater than 3% is considered moderate risk. If this is the case, consider specialist referral to assess eligibility for a risk reducing agent. 2. If overall lifetime risk for the development of breast cancer is 20% or higher, the patient may qualify for future screening with alternating mammogram and breast MRI. Electronically signed and approved by: Sharan Jordan M.D. Radiologist
== END | disposition home or self-care (01) ==
LOC: RADMAMWWP 13:59
PROVIDERS: ATTEND Family Medicine
DX: Z12.31 Encounter for screening mammogram for malignant neoplasm of breast (principal); Z78.0 Asymptomatic menopausal state
CPT/HCPCS: 77063; 77067

== ENCOUNTER → 2024-04-15 | Outpatient (CLI) | payer MEDICARE ==
--- NOTE | 2024-04-15 19:11 | CA ---
Transthoracic Echo Report Name: Racheal August Age: 73 Gender: F : 1950 Exam Date: 04/15/2024 14:27 Exam Location: [place] [facility] Ht (in): 61 Wt (lb): 165 Ordering Physician: Georges Bueno MD Attending/Referring Phys: Vilma Mccoy [facility] Oil Deliverer Emilee Gunter RDCS Procedure CPT: Indications: CARDIAC MURMUR, UNSPEC Cardiac Hx: Technical Quality: Fair Contrast 1: Total Dose (mL): Contrast 2: Total Dose (mL): MEASUREMENTS (Male / Female) Normal Values 2D ECHO LV Diastolic Diameter PLAX 4.0 cm 4.2 - 5.9 / 3.9 - 5.3 cm LV Systolic Diameter PLAX 2.9 cm IVS Diastolic Thickness 1.2 cm 0.6 - 1.0 / 0.6 - 0.9 cm LVPW Diastolic Thickness 1.3 cm 0.6 - 1.0 / 0.6 - 0.9 cm LV Relative Wall Thickness 0.6 RV Internal Dim ED PLAX 2.4 cm LVOT Diameter 1.7 cm LA Systolic Diameter LX 3.7 cm 3.0 - 4.0 / 2.7 - 3.8 cm LV Diastolic Volume MOD BP 56.7 cm??? 67 - 155 / 56 - 104 cm??? LV Systolic Volume MOD BP 17.1 cm??? 22 - 58 / 19 - 49 cm??? LV Ejection Fraction MOD BP 69.9 % >= 55 % LV Cardiac Index MOD BP 1497.9 cm???/min???m??? LV Diastolic Volume MOD 4C 52.6 cm??? LV Systolic Volume MOD 4C 14.3 cm??? LV Ejection Fraction MOD 4C 72.8 % LV Cardiac Index MOD 4C 1448.4 cm???/min???m??? LV Diastolic Length 4C 6.5 cm LV Systolic Length 4C 4.8 cm LV Diastolic Volume MOD 2C 59.6 cm??? LV Systolic Volume MOD 2C 18.6 cm??? LV Ejection Fraction MOD 2C 68.7 % LV Cardiac Index MOD 2C 1549.3 cm???/min???m??? LV Diastolic Length 2C 6.2 cm LV Systolic Length 2C 5.3 cm LA Volume 60.4 cm??? 18 - 58 / 22 - 52 cm??? LA Volume Index 33.1 cm???/m??? 16 - 28 cm???/m??? M-MODE Aortic Root Diameter MM 2.8 cm LA Systolic Diameter MM 2.9 cm LA Ao Ratio MM 1.0 AV Cusp Separation MM 1.5 cm DOPPLER AV Peak Velocity 282.0 cm/s AV Peak Gradient 31.8 mmHg AV Mean Velocity 196.3 cm/s AV Mean Gradient 17.3 mmHg AV Velocity Time Integral 62.4 cm AI Peak Velocity 476.6 cm/s AI Peak Gradient 90.9 mmHg AI Pressure Half Time 495.8 ms LVOT Peak Velocity 115.8 cm/s LVOT Peak Gradient 5.4 mmHg LVOT Velocity Time Integral 30.4 cm LVOT Stroke Volume 71.5 cm??? LVOT Stroke Volume Index 41.1 ml/m??? LVOT Cardiac Index 2703.0 cm???/min???m??? AV Area Cont Eq vti 1.1 cm??? AV Area Cont Eq pk 1.0 cm??? MV Area PHT 2.7 cm??? Mitral E Point Velocity 84.8 cm/s Mitral A Point Velocity 104.7 cm/s Mitral E to A Ratio 0.8 MV Deceleration Time 278.2 ms TR Peak Velocity 265.7 cm/s TR Peak Gradient 28.2 mmHg Right Ventricular Systolic Press 32.8 mmHg FINDINGS Left Ventricle Left ventricular ejection fraction is estimated at 55-60%. Mildly increased septal wall thickness. Moderately increased posterior wall thickness. Normal left ventricular systolic function with no obvious regional wall motion abnormalities. Left ventricular cavity size normal. Right Ventricle Normal right ventricular size and function. Right ventricular systolic pressure within normal limits. Right Atrium Normal right atrial size. Left Atrium Mildly increased left atrial volume. Mitral Valve Structurally normal mitral valve. Mild to moderate mitral regurgitation. No mitral stenosis. Aortic Valve Trileaflet aortic valve. Increased AV PG, AV Mean PG 17mmHg. Thickened aortic valve without stenosis. Moderate aortic regurgitation. Tricuspid Valve Structurally normal tricuspid valve. Mild tricuspid regurgitation. No tricuspid stenosis. Pulmonic Valve Structurally normal pulmonic valve. Trace pulmonic regurgitation. No pulmonic stenosis. Pericardium No pericardial or pleural effusion. Aorta Normal size aortic root and proximal ascending aorta. CONCLUSIONS Normal biventricular systolic function Aortic sclerosis with mild to moderate stenosis and moderate insufficiency Mild to moderate MR Normal pulmonary artery systolic pressure No pericardial effusion Previewed by: Dr. Hubert Balderrama MD (Electronically Signed) Final Date: 15 April 2024 19:11
--- NOTE | 2024-04-18 07:42 | MM ---
Reason for Exam: Screening (asymptomatic). Last mammogram was performed 1 year(s) and 1 month(s) ago. Patient History: Menarche at age 10. First Full-Term at age 29. Postmenopausal. Risk Values: Marilu 5 year model risk: 2.2%. NCI Lifetime model risk: 5.3%. Prior Study Comparison: 02/09/2017 Bilateral Screening Mammogram, [facility]. 04/11/2019 Bilateral Screening Mammogram, [facility]. 03/31/2023 Bilateral MG 3D screening mammo w/cad, [facility]. Tissue Density: The breasts are heterogeneously dense, which may obscure small masses. Findings: Analyzed By CAD. Right breast: There is no suspicious group of microcalcifications or new suspicious mass. Benign-appearing calcifications right breast. Left breast: There is no suspicious group of microcalcifications or new suspicious mass. Benign-appearing calcifications left breast. Overall Assessment: Benign, BI-RAD 2 Management: Screening Mammogram of both breasts in [address] [facility] will attempt to contact patient to return for supplemental views and ultrasound if indicated. Patient should continue monthly self-breast exams. A clinical breast exam by your physician is recommended on an annual basis. This exam should not preclude additional follow-up of suspicious palpable abnormalities. Note on Marilu scores and lifetime risk: 1. A Marilu score greater than 3% is considered moderate risk. If this is the case, consider specialist referral to assess eligibility for a risk reducing agent. 2. If overall lifetime risk for the development of breast cancer is 20% or higher, the patient may qualify for future screening with alternating mammogram and breast MRI. [facility], , 04/18/2024 7:39 AM. Electronically signed and approved by: Tano Crisostomo DO
== END | disposition home or self-care (01) ==
LOC: RADMAMWWP 13:59
PROVIDERS: ATTEND Family Medicine
DX: Z12.31 Encounter for screening mammogram for malignant neoplasm of breast (principal); R01.1 Cardiac murmur, unspecified; Z78.0 Asymptomatic menopausal state; R92.333 Mammographic heterogeneous density, bilateral breasts; I07.1 Rheumatic tricuspid insufficiency; I70.0 Atherosclerosis of aorta; I37.1 Nonrheumatic pulmonary valve insufficiency
CPT/HCPCS: 77063; 77067; 93306

== ENCOUNTER 2024-10-24 17:48 | Emergency (ER) | payer MEDICARE, OTHER ==
--- NOTE | 2024-10-24 19:48 | ED ---
Dizziness HPI - General Source: patient, RN notes reviewed Mode of arrival: wheelchair Limitations: no limitations <John Sahu - Last Filed: 10/24/24 19:47> - General Source: patient, RN notes reviewed, old records reviewed Mode of arrival: wheelchair Limitations: no limitations - History of Present Illness MD Complaint: dizziness, difficulty walking Timing: intermittent Description: "room spinning", off-balance History of Same: No History of Trauma: No Severity: moderate Improves With: remaining still Worsens With: movement Associated Symptoms: denies other symptoms <Jeff Aburto - Last Filed: 10/25/24 01:06> - General Chief Complaint: Dizziness Stated Complaint: Dizziness Time Seen by Provider: 10/24/24 18:03 - History of Present Illness Initial Comments: Quick note: This is a 74-year-old female with history including hypertension and hyperlipidemia presenting for dizziness beginning at 1600 today. Patient states dizziness has been constant that worsens when turning her head with associated nausea. States similar dizziness has occurred twice previously with spontaneous resolution. Patient states she is unsure why she is continuing to experience persistent dizziness. Denies fever, chills, hearing changes, ear pain, chest pain, dyspnea, abdominal pain, unilateral paresthesia, hemiplegia. (Salome Sahu) This is a 74-year-old female to the ER for evaluation known high blood pressure high cholesterol with dizziness weakness today. Symptoms resolved prior to arrival but this sudden onset room spinning with nausea, mild vomiting or dry heaving, symptoms were episodic (Jeff Aburto) - Related Data Home Medications Medication Instructions Recorded Confirmed Omeprazole [PriLOSEC] 40 mg PO DAILY 05/03/21 05/08/21 Prolia(Dose Unknown) 1 injection IJ DIRECTED 05/03/21 05/08/21 Previous Rx's Medication Instructions Recorded Ondansetron Odt [Zofran ODT] 4 mg PO Q8HR PRN #30 tab 10/25/24 Allergies Allergy/AdvReac Type Severity Reaction Status Date / Time Sulfa (Sulfonamide AdvReac RINGING IN Verified 10/24/24 18:00 Antibiotics) YOUR EARS Review of Systems ROS Other: All systems not noted in ROS Statement are negative. <John Sahu - Last Filed: 10/24/24 19:47> ROS Other: All systems not noted in ROS Statement are negative. <LamonteJeff B - Last Filed: 10/25/24 01:06> ROS Statement: Those systems with pertinent positive or pertinent negative responses have been documented in the HPI. Past Medical History Past Medical History: GERD/Reflux, Hyperlipidemia, Hypertension History of Any Multi-Drug Resistant Organisms: None Reported Past Surgical History: Appendectomy Additional Past Surgical History / Comment(s): ECTOPIC Past Anesthesia/Blood Transfusion Reactions: Motion Sickness Past Psychological History: No Psychological Hx Reported Smoking Status: Current every day smoker Past Alcohol Use History: Occasional Past Drug Use History: None Reported <John Sahu - Last Filed: 10/24/24 19:47> General Exam Limitations: no limitations <John Sahu - Romie Filed: 10/24/24 19:47> General appearance: alert, in no apparent distress Head exam: Present: atraumatic, normocephalic, normal inspection Eye exam: Present: normal appearance, PERRL, EOMI. Absent: scleral icterus, conjunctival injection, periorbital swelling ENT exam: Present: normal exam, mucous membranes moist Neck exam: Present: normal inspection. Absent: tenderness, meningismus, lymphadenopathy Respiratory exam: Present: normal lung sounds bilaterally. Absent: respiratory distress, wheezes, rales, rhonchi, stridor Cardiovascular Exam: Present: regular rate, normal rhythm, normal heart sounds. Absent: systolic murmur, diastolic murmur, rubs, gallop, clicks GI/Abdominal exam: Present: soft, normal bowel sounds. Absent: distended, tenderness, guarding, rebound, rigid Extremities exam: Present: normal inspection, full ROM, normal capillary refill. Absent: tenderness, pedal edema, joint swelling, calf tenderness Back exam: Present: normal inspection Neurological exam: Present: alert, oriented X3, CN II-XII intact Psychiatric exam: Present: normal affect, normal mood Skin exam: Present: warm, dry, intact, normal color. Absent: rash <Jeff Aburto - Last Filed: 10/25/24 01:06> - General Exam Comments Initial Comments: Visual Physical Exam Vital signs reviewed General: Well-appearing, nontoxic, no acute distress. Head: Normocephalic, atraumatic Eyes: PERRLA, EOMI ENT: Airway patent Chest: Nonlabored breathing Skin: No visual rash, normal skin tone Neuro: Alert and oriented 3 Musculoskeletal: No gross abnormalities (John Sahu) Course <Jeff Aburto - Last Filed: 10/25/24 01:06> Vital Signs 10/24/24 10/24/24 10/25/24 17:57 22:01 00:08 Temperature 97.6 F 98.2 F Pulse Rate 62 67 63 Respiratory 16 18 18 Rate Blood Pressure 163/58 150/62 150/62 O2 Sat by Pulse 98 97 98 Oximetry - Reevaluation(s) Reevaluation #1: 10/25/24 01:05 Medical records reviewed (Jeff Aburto) Reevaluation #2: 10/25/24 01:05 No recurrent symptoms here in the ER symptoms are consistent with vertigo (Jeff Aburto) Reevaluation #3: 10/25/24 01:05 Patient reported results questions answered (Jeff Aburto) Reevaluation #4: Was pt. sent in by a medical professional or institution (, PA, RN ONCOLOGY RESEARCH, urgent care, hospital, or long term...) When possible be specific @ -no Did you speak to anyone other than the patient for history (EMS, parent, family, police, friend...)? What history was obtained from this source @ -no Did you review nursing and triage notes (agree or disagree)? Why? @ -agree Are old charts reviewed (outside hosp., previous admission, EMS record, old EKG, old radiological studies, urgent care reports/EKG's, long term records)? Report findings @ -yes Differential Diagnosis (chest pain, altered mental status, abdominal pain women, abdominal pain men, vaginal bleeding, weakness, fever, dyspnea, syncope, headache, dizziness, GI bleed, back pain, seizure, CVA, palpatations, mental health, musculoskeletal)? @ -prior EKG interpreted by me (3pts min.). @ -yes X-rays interpreted by me (1pt min.). @ -yes negative for acute disease CT interpreted by me (1pt min.). @ -no U/S interpreted by me (1pt. min.). @ -no What testing was considered but not performed or refused? (CT, X-rays, U/S, labs)? Why? @ -none What meds were considered but not given or refused? Why? @ -none Did you discuss the management of the patient with other professionals (professionals i.e. , PA, RN ONCOLOGY RESEARCH, lab, RT, psych nurse, social worker psychiatric, family manager, teacher, general service officer, casey saw operator)? Give summary @ -no Was smoking cessation discussed for >3mins.? @ -no Was critical care preformed (if so, how long)? @ -no Were there social determinants of health that impacted care today? How? (Homelessness, low income, unemployed, alcoholism, drug addiction, transportatio n, low edu. Level, literacy, decrease access to med. care, half-way, rehab)? @ -none Was there de-escalation of care discussed even if they declined (Discuss DNR or withdrawal of care, Hospice)? DNR status @ -no What co-morbidities impacted this encounter? (DM, HTN, Smoking, COPD, CAD, Cancer, CVA, ARF, Chemo, Hep., AIDS, mental health diagnosis, sleep apnea, morbid obesity)? @ -none Was patient admitted / discharged? Hospital course, mention meds given and route, prescriptions, significant lab abnormalities, going to OR and other pertinent info. @ - Undiagnosed new problem with uncertain prognosis? @ -no Drug Therapy requiring intensive monitoring for toxicity (Heparin, Nitro, Insulin, Cardizem)? @ -no Were any procedures done? @ -no Diagnosis/symptom? @ - Acute, or Chronic, or Acute on Chronic? @ -Acute Uncomplicated (without systemic symptoms) or Complicated (systemic symptoms)? @ -Complicated Side effects of treatment? @ -no Exacerbation, Progression, or Severe Exacerbation? @ -exacerbation Poses a threat to life or bodily function? How? (Chest pain, USA, HI, pneumonia, PE, COPD, DKA, ARF, appy, cholecystitis, CVA, Diverticulitis, Homicidal, Suicidal, threat to staff... and all critical care pts) @ -yes (Jeff Aburto) Reevaluation #5: Differential Dizziness: Benign paroxysmal positional Vertigo, Meniere's disease, otitis media, acoustic neuroma, vertebrobasilar insufficiency, cerebellar stroke, encephalitis, hypovol emic, arrhythmia, coronary artery syndrome, anemia, this is not meant to be an all-inclusive list (Jeff Aburto) EKG Findings - EKG Comments: EKG Findings:: EKG is sinus bradycardia 58 AR 143 QRS 96 QTc 416 - EKG Results: EKG: interpreted by ERMD <Jeff Aburto - Last Filed: 10/25/24 01:06> Medical Decision Making <John Sahu - Last Filed: 10/24/24 19:47> - Lab Data Result diagrams: 10/24/24 21:05 10/24/24 21:05 - EKG Data -: EKG Interpreted by Me - Radiology Data Radiology results: report reviewed (CT brain negative for acute disease), image reviewed <Jeff Aburto - Last Filed: 10/25/24 01:06> - Medical Decision Making I completed the quick note portion of this chart signed BRAD Garcia (John Sahu) 74 female to ER for evaluation of dizziness vertiginous symptoms room spinning all symptoms currently resolved patient feels well can be discharged home (Jeff Aburto) - Lab Data Lab Results 10/24/24 10/24/24 10/24/24 Range/Units 21:05 21:05 21:05 WBC 11.70 H (4.50-10.00) 10*3/uL RBC 4.58 (4.10-5.20) 10*6/uL Hgb 15.0 (12.0-15.0) g/dL Hct 44.0 (37.2-46.3) % MCV 96.1 (80.0-97.0) fL MCH 32.8 H (27.0-32.0) pg MCHC 34.1 (32.0-37.0) g/dL Plt Count 203 (140-440) 10*3/uL MPV 11.3 (9.5-12.2) fL Immature Gran % (Auto) 0.3 % Neutrophils % 82.1 % Lymphocytes % 12.4 % Monocytes % 4.8 % Eosinophils % 0.1 % Basophils % 0.3 % Immature Gran # 0.03 (0.00-0.04) 10*3/uL Neutrophils # 9.61 H (1.80-7.70) 10*3/uL Lymphocytes # 1.45 (0.90-5.00) 10*3/uL Monocytes # 0.56 (0.20-1.00) 10*3/uL Eosinophils # 0.01 L (0.04-0.35) 10*3/uL Basophils # 0.04 (0.00-0.10) 10*3/uL PT 10.3 (10.0-12.5) sec INR 0.9 (<1.2) APTT 20.7 L (22.0-30.0) sec D-Dimer (<0.60) mg/L FEU Sodium 138 (137-145) mmol/L Potassium 4.2 (3.5-5.1) mmol/L Chloride 106 (98-107) mmol/L Carbon Dioxide 21 L (22-30) mmol/L Anion Gap 11 mmol/L BUN 17 (7-17) mg/dL Creatinine 0.81 (0.52-1.04) mg/dL Est GFR (CKD-EPI)AfAm 83 (>60 ml/min/1.73 sqM) Est GFR (CKD-EPI)NonAf 72 (>60 ml/min/1.73 sqM) Glucose 141 H (74-99) mg/dL Calcium 10.5 H (8.4-10.2) mg/dL Phosphorus (2.5-4.5) mg/dL Magnesium 2.1 (1.6-2.3) mg/dL Total Bilirubin 1.3 (0.2-1.3) mg/dL AST 21 (14-36) U/L ALT 19 (4-34) U/L Alkaline Phosphatase 129 H (38-126) U/L Troponin I (0.000-0.034) ng/mL NT-Pro-B Natriuret Pep pg/mL Total Protein 6.8 (6.3-8.2) g/dL Albumin 4.2 (3.5-5.0) g/dL TSH (0.465-4.680) mIU/L 10/24/24 10/24/24 10/24/24 Range/Units 21:05 21:05 21:05 WBC (4.50-10.00) 10*3/uL RBC (4.10-5.20) 10*6/uL Hgb (12.0-15.0) g/dL Hct (37.2-46.3) % MCV (80.0-97.0) fL MCH (27.0-32.0) pg MCHC (32.0-37.0) g/dL Plt Count (140-440) 10*3/uL MPV (9.5-12.2) fL Immature Gran % (Auto) % Neutrophils % % Lymphocytes % % Monocytes % % Eosinophils % % Basophils % % Immature Gran # (0.00-0.04) 10*3/uL Neutrophils # (1.80-7.70) 10*3/uL Lymphocytes # (0.90-5.00) 10*3/uL Monocytes # (0.20-1.00) 10*3/uL Eosinophils # (0.04-0.35) 10*3/uL Basophils # (0.00-0.10) 10*3/uL PT (10.0-12.5) sec INR (<1.2) APTT (22.0-30.0) sec D-Dimer 0.46 (<0.60) mg/L FEU Sodium (137-145) mmol/L Potassium (3.5-5.1) mmol/L Chloride (98-107) mmol/L Carbon Dioxide (22-30) mmol/L Anion Gap mmol/L BUN (7-17) mg/dL Creatinine (0.52-1.04) mg/dL Est GFR (CKD-EPI)AfAm (>60 ml/min/1.73 sqM) Est GFR (CKD-EPI)NonAf (>60 ml/min/1.73 sqM) Glucose (74-99) mg/dL Calcium (8.4-10.2) mg/dL Phosphorus 2.8 (2.5-4.5) mg/dL Magnesium 2.2 (1.6-2.3) mg/dL Total Bilirubin (0.2-1.3) mg/dL AST (14-36) U/L ALT (4-34) U/L Alkaline Phosphatase (38-126) U/L Troponin I <0.012 (0.000-0.034) ng/mL NT-Pro-B Natriuret Pep 178 pg/mL Total Protein (6.3-8.2) g/dL Albumin (3.5-5.0) g/dL TSH 2.560 (0.465-4.680) mIU/L Disposition <John Sahu - Last Filed: 10/24/24 19:47> Is patient prescribed a controlled substance at d/c from ED?: No Time of Disposition: 23:30 <Jeff Aburto - Last Filed: 10/25/24 01:06> Clinical Impression: Dizziness, Dehydration Disposition: HOME SELF-CARE Condition: Good Instructions (If sedation given, give patient instructions): Dizziness (ED) Prescriptions: Ondansetron Odt [Zofran ODT] 4 mg PO Q8HR PRN #30 tab PRN Reason: nausea/vomiting Referrals: Georges Bueno MD [Primary Care Provider] - 1-2 days
--- NOTE | 2024-10-24 20:51 | XR ---
EXAMINATION TYPE: XR chest 2V DATE OF EXAM: 10/24/2024 8:26 PM COMPARISON: Chest radiographs from 11/26/2020 CLINICAL INDICATION: Female, 74 years old with history of Dizziness; [facility] TECHNIQUE: XR chest 2V Frontal and lateral views of the chest. FINDINGS: Lungs/Pleura: Prominent interstitial lung markings are seen scattered throughout the lungs. No eviden ce of focal consolidation, pneumothorax or pleural effusion. Pulmonary vascularity: Unremarkable. Heart/mediastinum: Cardiomediastinal silhouette is unremarkable. Musculoskeletal: No acute osseous pathology. IMPRESSION: Interstitial lung disease changes without acute pulmonary process. [facility], , 10/24/2024 8:49 PM
[2024-10-24 21:30] LABS: Basophils # (A) 0.04 10*3/uL (0.00-0.10); Basophils % (A) 0.3 %; Eosinophils # (A) 0.01 10*3/uL (0.04-0.35); Eosinophils % (A) 0.1 %; HCT 44.0 % (37.2-46.3); HGB 15.0 g/dL (12.0-15.0); Lymphocytes # (A) 1.45 10*3/uL (0.90-5.00); Lymphocytes % (A) 12.4 %; MCH 32.8 pg (27.0-32.0); MCHC 34.1 g/dL (32.0-37.0); MCV 96.1 fL (80.0-97.0); Monocytes # (A) 0.56 10*3/uL (0.20-1.00); Monocytes % (A) 4.8 %; Neutrophils # (A) 9.61 10*3/uL (1.80-7.70); Neutrophils % (A) 82.1 %; Platelet Count 203 10*3/uL (140-440); RBC 4.58 10*6/uL (4.10-5.20); RDW 14.0 % (11.5-14.5); WBC 11.70 10*3/uL (4.50-10.00)
[2024-10-24 21:41] LABS: ALT 19 U/L (4-34); AST 21 U/L (14-36); African American GFR (CKD) 83 (>60 ml/min/1.73 sqM); Albumin 4.2 g/dL (3.5-5.0); Alkaline Phosphatase 129 U/L (38-126); Anion Gap 11 mmol/L; Blood Urea Nitrogen 17 mg/dL (7-17); Calcium 10.5 mg/dL (8.4-10.2); Carbon Dioxide 21 mmol/L (22-30); Chloride 106 mmol/L (98-107); Glucose 141 mg/dL (74-99); Magnesium 2.1 mg/dL (1.6-2.3); Non-African American GFR(CKD) 72 (>60 ml/min/1.73 sqM); Potassium 4.2 mmol/L (3.5-5.1); Sodium 138 mmol/L (137-145); Total Protein 6.8 g/dL (6.3-8.2)
[2024-10-24 21:49] LABS: INR 0.9 (<1.2); Partial Thromboplastin Time 20.7 sec (22.0-30.0); Prothrombin Time 10.3 sec (10.0-12.5)
[2024-10-24] MEDS: SODIUM CHLORIDE 0.9% 1,000 ML IV ONE (21:54)
[2024-10-24] MEDS: ONDANSETRON 4 MG/2 ML VIAL IVP STA (21:56)
[2024-10-24 22:01] VITALS: BP 150/62; RESP 18
[2024-10-24 22:44] LABS: Magnesium 2.2 mg/dL (1.6-2.3)
[2024-10-24 22:54] LABS: NT-Pro-B-Type Natriuretic Pept 178.0 pg/mL
--- NOTE | 2024-10-24 23:43 | CT ---
EXAM: CT Head Without Intravenous Contrast CLINICAL HISTORY: ITS.REASON CT Reason: dizzy TECHNIQUE: Axial computed tomography images of the head/brain without intravenous contrast. CTDI is 49.2 mGy and DLP is 1156.4 mGy-cm. This CT exam was performed using one or more of the following dose reduction techniques: automated exposure control, adjustment of the mA and/or kV according to patient size, and/or use of iterative reconstruction technique. COMPARISON: No relevant prior studies available. FINDINGS: No acute intracranial hemorrhage. No midline shift or mass effect. The territorial abraham-white matter differentiation is maintained throughout. Age-related cerebral volume loss. Periventricular and subcortical white matter hypoattenuation, consistent with chronic microangiopathy. The visualized orbits appear grossly unremarkable. The calvarium is intact. The visualized paranasal sinuses and mastoid air cells are grossly clear. IMPRESSION: No acute intracranial hemorrhage, midline shift, or mass effect.
[2024-10-25 00:12] VITALS: PULSE 63; TEMP 98.2
[2024-10-25] MEDS: ONDANSETRON 4 MG ODT STARTER PACK 2 TAB BTL PO STA (00:13)
[2024-10-25 04:17] LABS: Amorphous Sediment,Urine Few /hpf; Bacteria,Urine Many /hpf; Bilirubin,Urine Negative (Negative); Blood,Urine Negative (Negative); Color,Urine Colorless; Glucose,Urine (UA) Negative (Negative); Ketones,Urine Negative (Negative); Leukocyte Esterase,Urine Negative (Negative); Mucus,Urine Occasional /hpf; Nitrite,Urine Negative (Negative); PH, Urine 8.0 (5.0-8.0); Protein,Urine Negative (Negative); Specific Gravity,Urine 1.007 (1.001-1.035); Squamous Epithelial Cell,Urine 1 /hpf (0-4); Triple Phosphate Crystal,Urine Occasional /hpf; Urobilinogen,Urine <2.0 mg/dL (<2.0); WBC,Urine 9 /hpf (0-5)
== END 2024-10-25 00:17 | disposition home or self-care (01) ==
LOC: EC 17:48
DX: E86.0 Dehydration (principal); R42 Dizziness and giddiness; F17.200 Nicotine dependence, unspecified, uncomplicated; Z88.2 Allergy status to sulfonamides
CPT/HCPCS: 93005; 85379; 83880; 80053; 83735; 84100; 84443; 84484; 85025; 85610; 85730; 71046; 70450; 99284; 96374; 96361; J2405; 36415; 81001; 83605; 87086

== ENCOUNTER → 2024-11-08 | Outpatient (CLI) | payer MEDICARE, OTHER ==
[2024-11-08 09:16] LABS: African American GFR (CKD) 81 (>60 ml/min/1.73 sqM); Blood Urea Nitrogen 30 mg/dL (7-17); Non-African American GFR(CKD) 70 (>60 ml/min/1.73 sqM)
--- NOTE | 2024-11-08 10:32 | CT ---
EXAMINATION TYPE: CT angio head DATE OF EXAM: 11/08/2024 10:17 AM COMPARISON: 10/24/2024 HISTORY: vertigo and hypertension. CT DLP: 1227.70 mGycm Automated exposure control for dose reduction was used. TECHNIQUE: Performed without and with IV Contrast, patient injected with 90ml mL of Isovue 370. . FINDINGS: Hypoattenuation the white matter nonspecific but most typical remote microvascular anemia. No midline shift. No mass effect. No acute hemorrhage. Minimal changes of chronic sinusitis. Mastoid air cells clear. Orbits symmetric. Dental note made of a 7 mm left parotid nodule. Craniocervical junction maintained. Sella turcica has a normal appearance. Vertebral arteries are symmetric in size. Vertebral basilar and posterior cerebral arteries are paten t. Anterior cerebral, middle cerebral arteries are patent. Visualized portions of the internal carotid a rteries are patent. There is no sizable aneurysm or vascular malformation. IMPRESSION: 1. NO SIZABLE ANEURYSM OR VASCULAR MALFORMATION. 2. INCIDENTAL NOTE MADE OF A 7 MM LEFT PAROTID NODULE CONSIDER FOLLOW-UP ULTRASOUND.. [facility], , 11/08/2024 10:30 AM
== END | disposition home or self-care (01) ==
LOC: RADCTMAIN 08:30
PROVIDERS: ATTEND Family Medicine
DX: I10 Essential (primary) hypertension (principal)
CPT/HCPCS: 82565; 84520; 70496; 36415; Q9967